=== PATIENT | female | born 1990 | race Caucasian/White ===

== ENCOUNTER 2023-11-25 15:32 | Outpatient (CLI) | payer OTHER, SELFPAY ==
--- NOTE | ~2023-11-25 | US_ITS ---
EXAMINATION: US OB <= 14 weeks fetus DATE: 11/25/2023 16:02 INDICATION: Uncertain dates. TECHNIQUE: Real-time transabdominal pelvic ultrasound was performed. COMPARISON: None. FINDINGS: The uterus measures 12.7 x 8.2 x 9.4 cm. There is an intrauterine gestational sac. A yolk sac is iden tified. The crown rump length measures 5.3 cm, which correlates with an estimated gestational age of 12 weeks and 0 day(s) (+/-) 1 week(s) and 1 day(s). heart motion is identified measuring 152 beats per minute (bpm) by M-mode Doppler. There is a 3.0 cm intramural fibroid. The right ovary measures 3.0 x 1.9 x 2.2 cm. The left ovary is not visualized. There is no free fluid in the pelvis. IMPRESSION: 1. Single living intrauterine gestation with estimated date of delivery of 06/08/2024. 2. Uterine fibroid. Reviewed, dictated and finalized at location A. IMPRESSION: 1. Single living intrauterine gestation with estimated date of delivery of 06/08. 2. Uterine fibroid.
== END 2023-11-25 15:33 | disposition home or self-care (01) ==
PROVIDERS: PCP Nurse Practitioner; Visit Provider Nurse Practitioner
DX: Z36.87 Encounter for antenatal screening for uncertain dates (principal); Z3A.00 Weeks of gestation of pregnancy not specified; D25.9 Leiomyoma of uterus, unspecified
CPT/HCPCS: 76801

== ENCOUNTER 2024-03-20 01:20 | Inpatient (IN) | payer OTHER, SELFPAY ==
[2024-03-20] VITALS (14 sets, daily range): BP systolic 123–147; BP diastolic 53–67; PULSE 97–113; O2SAT 95–100; BMI 37.7
--- NOTE | 2024-03-20 01:41 | PM.IMHP ---
H&P: HPI History of Present Illness Date/Time: 03/20/24 01:41 Chief Complaint: Bleeding and rupture of membranes at term Narrative: Rita 4 para 3 at 28 weeks gestation with a velamentous insertion by her history began bleeding and possibly ruptured on admission. She has 4.5cm. Attempt to be made to control contractions with magnesium and transfer Review of Systems Review of Systems: All systems reviewed & are unremarkable except as noted in HPI and below Meds Home Medications and Allergies Allergies Allergy/AdvReac Type Severity Reaction Status Date / Time No Known Allergies Allergy Unverified 07/09/18 15:45 Vital Signs Vital Signs - 24 hr 03/20/24 00:52 03/20/24 01:01 03/20/24 01:16 Pulse Rate 98 97 103 H Blood Pressure 123/53 L 130/61 130/60 Exam Const: General: cooperative and healthy appearing Orientation/consciousness: oriented to person, oriented to place and oriented to time HENMT: Head: normal to inspection Resp: Effort & Inspection: normal respiratory effort Cardio: Rate: regular rate Rhythm: regular rhythm Heart sounds: S1 normal heart sound present and S2 normal heart sound present GI: Inspection: normal to inspection ( gravid soft uterus) : External Female Exam: normal external appearance Speculum Exam - Vagina: normal appearance of the vagina Speculum Exam - Cervix: normal appearance of the cervix (cx 4cm by rn exam.fhts ok) and Other cervical findings present ( ultrasound reveals indeed vertex) Assessment and Plan Assessment and plan (1) Premature rupture of membranes (PROM) at term with onset of labor after 24 hours, antepartum: Code(s): O42.12 - Full-term premature rupture of membranes, onset of labor more than 24 hours following rupture Status: Acute (2) labor with term delivery, antepartum: Code(s): O60.20X0 - Term delivery with labor, unspecified trimester, not applicable or unspecified Status: Acute Plan tocolysis/ steroid/ IV antibiotics/ transfer if tertiary team will accept
[2024-03-20 01:48] LABS: Hematocrit 37.5 % (37.0-47.0); Hemoglobin 12.6 g/dL (12.0-15.0); Mean Corpuscular HGB Conc 33.6 g/dl (32-36); Mean Corpuscular Hemoglobin 28.7 pg (26-34); Mean Corpuscular Volume 85.4 fl (80-100); Platelet Count Result 158 k/mm3 (150-375); Red Blood Count 4.39 M/mm3 (4.2-5.4); White Blood Count 13.5 K/mm3 (4.5-10.0)
--- NOTE | 2024-03-20 01:50 | PM.DS ---
DS: Admitting Diagnosis Discharge Date Admitting Diagnosis pre term labor /bleeding DS: Discharge Diagnosis Discharge Diagnosis (1) Premature rupture of membranes (PROM) at term with onset of labor after 24 hours, antepartum: Code(s): O42.12 - Full-term premature rupture of membranes, onset of labor more than 24 hours following rupture Status: Acute (2) labor with term delivery, antepartum: Code(s): O60.20X0 - Term delivery with labor, unspecified trimester, not applicable or unspecified Status: Acute DS: Summary Hospital Course Reason for hospitalization: this 4 para 3 at 28 and half weeks gestation complaining of bleeding prior to admission had been uncomplicated showed a velamentous insertion. She has noted before his cm on admission and was given steroids IV magnesium and antibiotics. Hospital Course: Consultation was immediately made with tertiary care center at [facility] accepted transfer. Ultrasound proved the head was down of fluid was subjectively very low. Time Spent with Patient Time attestation: Total time spent providing and/or coordinating discharge services: Exam Const: General: cooperative and healthy appearing Nutritional Appearance: overweight Orientation/consciousness: oriented to person, oriented to place and oriented to time Resp: Effort & Inspection: normal respiratory effort Cardio: Rate: regular rate Rhythm: regular rhythm Heart sounds: S1 normal heart sound present and S2 normal heart sound present GI: Inspection: normal to inspection ( Gravid uterus) : Speculum Exam - Cervix: normal appearance of the cervix ( cervix 4.5cm.) DS: Data Data Completed and Pending Labs on day of discharge: Labs from last 24 hours 03/20/24 01:44 WBC 13.5 H RBC 4.39 Hgb 12.6 Hct 37.5 MCV 85.4 MCH 28.7 MCHC 33.6 RDW 13.0 Plt Count 158 MPV 12.0 H RPR Pending HIV 1&2 Ab/P24 Ag 4thGn Pending Blood Type Pending Antibody Screen Pending Discharge Plan Discharge Attending physician on discharge: Trino Askew Discharging Clinician: Trino Askew Patient Disposition: Other Activity: no straining and pelvic rest Diet: NPO Wound Care Instructions: follow printed instructions Patient Instructions: Antibiotic Form Patient Language: Congolese Stand Alone Forms: General Discharge Information Date of admission: 03/20/24 00:32 Primary Care Provider: Wayne,Trini Clay Admitting Provider: Perla Ghosh Attending physician on admission: Perla Ghosh Condition: Guarded Prognosis
[2024-03-20] MEDS: LACTATED RINGERS 1,000 ML 75 ML IV CONT (02:00)
[2024-03-20] MEDS: MAGNESIUM SULF 6 GM/WATER150ML 6 GM/150 ML BAG IVPB (02:00)
[2024-03-20] MEDS: AMPICILLIN 2 GM/NS 100 ML 2 GM/100 ML BAG IVPB (02:00)
[2024-03-20] MEDS: BETAMETHASONE SOD PHOS/ACETATE 30 MG/5 ML VIAL 12 MG IM (02:01)
--- NOTE | 2024-03-20 02:18 | OBADM ---
This patient, Ofelia Espinoza, admitted to the OB room [facility] for observation. Patient/family oriented to hospital policies and general routines including ID bracelet, bed and alarms, visiting hours, pain management, procedures, bathroom and other care routines, personal items, smoking policy, room service/diet, and visiting hours. Patient/Family are encouraged to report perceived risks to care and to ask questions if they do not understand what they are told or what they should do.
[2024-03-20 02:21] LABS: Rapid Plasma Reagin Non-Reactive (NonReactive)
[2024-03-20 02:39] LABS: HIV 1/2 Ab P24 Ag Result Negative (Negative)
== END 2024-03-20 02:57 | disposition short-term general hospital (02) | DRG 833 ==
PROVIDERS: Admitting Provider Obstetrics & Gynecology; PCP Nurse Practitioner; Visit Provider Obstetrics & Gynecology
DX: O60.03 Preterm labor without delivery, third trimester (principal); O46.93 Antepartum hemorrhage, unspecified, third trimester; Z3A.28 28 weeks gestation of pregnancy
CPT/HCPCS: 36415; 85027; 86592; 86703; 86850; 86900; 86901; 96372; 96374; 96375; G0378; G0379; G0432; J0290; J0702; J3475; J7120